=== PATIENT | female | born 1955 | race Caucasian/White ===

== ENCOUNTER 2018-10-24 07:58 | Day surgery (SDC) | payer OTHER ==
[~2018-10-24] VITALS: Ht 175.3 cm; Wt 83.7 kg
[2018-10-24 10:06] VITALS: Ht 175.3 cm; Wt 83.7 kg
[2018-10-24 10:23] VITALS: BP 150/85; PULSE 85; RESP 18
[2018-10-24] MEDS ORDERED: MIDAZOLAM 1 MG/ML 2 ML INJ ONE ×2 (11:02)
[2018-10-24] MEDS ORDERED: FENTAnyl 50 MCG/ML VIAL ONE (11:02)
== END 2018-10-24 16:00 | disposition home or self-care (01) ==
LOC: EDBD 07:58 → GIL 07:58
PROVIDERS: ATTEND Internal Medicine Gastroenterology
DX: Z12.11 Encounter for screening for malignant neoplasm of colon (principal); D12.5 Benign neoplasm of sigmoid colon; D12.3 Benign neoplasm of transverse colon
CPT/HCPCS: 45380; 45385; 88305; J2250; J3010; Z7610